=== PATIENT | male | born 1980 | race Caucasian/White ===

== ENCOUNTER 2019-01-09 11:26 | Emergency (ER) | payer OTHER ==
[2019-01-09 11:38] VITALS: BP 142/85
[2019-01-09] MEDS ORDERED: HYDROmorphone 1 MG/ML Syringe IM ONE (11:52)
[2019-01-09] MEDS ORDERED: Ondansetron 4 MG Tab.DIS PO ONE (12:01)
--- NOTE | 2019-01-09 12:09 | EDM.PDOC ---
ED HPI GENERAL MEDICAL PROBLEM - General Chief Complaint: Headache Stated Complaint: BAD HEADACHE Time Seen by Provider: 01/09/19 11:50 Source of Information: Reports: Patient, Old Records History Limitations: Reports: No Limitations - History of Present Illness INITIAL COMMENTS - FREE TEXT/NARRATIVE: 38 yo male had his 3rd every epidural injection last week for back pain. He has had a progressive PHELAN since then. The PHELAN is worse when sitting or standing. Is associated with mild nausea and photophobia. Headache is felt in the forehead region. He had called in with is sx's to the pain clinic here at [facility] and was told to hydrate and use caffiene liberally which he has done without benefit. Sx's seem to be worsening over time. No fever. Onset: Gradual Onset Date: 01/05/19 Duration: Day(s):, Getting Worse Location: Reports: Head Quality: Reports: Ache Severity: Severe Improves with: Reports: Other (lying) Worsens with: Reports: Other (upright posture) Context: Reports: Other (See HPI) Associated Symptoms: Reports: Nausea/Vomiting (no vomiting) Treatments [employer]ATOR: Reports: Other (see below) (oral caffeine/hydration) Headache Pain Score (Numeric/FACES): 6 - Related Data Allergies Allergy/AdvReac Type Severity Reaction Status Date / Time No Known Allergies Allergy Verified 01/09/19 11:35 Home Meds: Home Meds Citalopram Hydrobromide [Celexa] 20 mg PO DAILY 08/20/13 [History] Propranolol [Inderal LA 24 Hr] 60 mg PO DAILY 08/20/13 [History] Pantoprazole [Protonix] 40 mg PO DAILY 06/08/14 [History] Past Medical History HEENT History: Reports: Impaired Vision Musculoskeletal History: Reports: Back Pain, Chronic Psychiatric History: Reports: Anxiety, Panic Attack Endocrine/Metabolic History: Reports: Obesity/BMI 30+ - Infectious Disease History Infectious Disease History: Reports: Chicken Pox - Past Surgical History Head Surgeries/Procedures: Reports: None HEENT Surgical History: Reports: Adenoidectomy, Tonsillectomy Endocrine Surgical History: Reports: None Musculoskeletal Surgical History: Reports: Other (See Below) Social & Family History - Tobacco Use Smoking Status *Q: Former Smoker Used Tobacco, but Quit: Yes Month/Year Tobacco Last Used: 2000 - Caffeine Use Caffeine Use: Reports: Coffee - Recreational Drug Use Recreational Drug Use: No ED ROS GENERAL - Review of Systems Review Of Systems: See Below Constitutional: Reports: No Symptoms HEENT: Reports: No Symptoms Respiratory: Reports: No Symptoms GI/Abdominal: Reports: Nausea. Denies: Vomiting : Reports: No Symptoms Musculoskeletal: Reports: No Symptoms Skin: Reports: No Symptoms Neurological: Reports: Headache Psychiatric: Reports: No Symptoms - Physical Exam Exam: See Below Exam Limited By: No Limitations General Appearance: Alert, WD/WN, No Apparent Distress Eye Exam: Bilateral Eye: Normal Inspection, PERRL, Other (photophobia) Ears: Normal External Exam, Normal Canal, Hearing Grossly Normal, Normal TMs Nose: Normal Inspection, Normal Mucosa, No Blood Throat/Mouth: Normal Inspection, Normal Lips, Normal Oropharynx, Normal Voice, No Airway Compromise Head Exam: Atraumatic, Normocephalic Neck: Normal Inspection Respiratory/Chest: No Respiratory Distress, Lungs Clear, Normal Breath Sounds, No Accessory Muscle Use Cardiovascular: Regular Rate, Rhythm, No Edema GI/Abdominal: Normal Bowel Sounds, Soft, Non-Tender, No Distention Neuro Exam (Abbreviated): Alert, Oriented, CN II-XII Intact, Normal Cognition, No Motor/Sensory Deficits Back Exam: Normal Inspection. No: CVA Tenderness (R), CVA Tenderness (L) Extremities: Normal Inspection, Normal Range of Motion, Non-Tender, No Pedal Edema Psychiatric: Normal Affect, Normal Mood Skin Exam: Warm, Dry, Intact, Normal Color, No Rash Course - Vital Signs Text/Narrative:: Called anesthesia @ 1215, states patient was offered a blood patch on Thursday and declined. Anesthesia will come in now and do the "blood patch" procedure. Last Recorded V/S: Last Vital Signs Temp 35.5 C 01/09/19 11:38 Pulse 58 L 01/09/19 11:38 Resp 16 01/09/19 11:38 BP 142/85 H 01/09/19 11:38 Pulse Ox 97 01/09/19 11:38 - Orders/Labs/Meds Meds: Medications Discontinued Medications Generic Name Dose Route Start Last Admin Trade Name Freq PRN Reason Stop Dose Admin Hydromorphone HCl 1 mg 01/09/19 11:52 01/09/19 11:55 Dilaudid IM 01/09/19 11:53 1 mg ONETIME ONE Administration Lactated Ringer's 1,000 mls @ 1,000 mls/hr 01/09/19 12:14 01/09/19 12:28 Ringers, Lactated IV 01/09/19 13:13 1,000 mls/hr BOLUS ONE Administration Midazolam HCl Confirm 01/09/19 13:27 Versed 1 Mg/Ml Administered 01/09/19 13:28 Dose 2 mg .ROUTE .STK-MED ONE Midazolam HCl 1 mg 01/09/19 13:30 01/09/19 13:32 Versed 1 Mg/Ml IVPUSH 01/09/19 13:31 1 mg ONETIME ONE Administration Ondansetron HCl 4 mg 01/09/19 12:01 01/09/19 12:08 Zofran Odt PO 01/09/19 12:02 4 mg ONETIME ONE Administration Departure - Departure Time of Disposition: 14:54 Disposition: Home, Self-Care 01 Condition: Good Clinical Impression: Spinal puncture headache - Discharge Information *PRESCRIPTION DRUG MONITORING PROGRAM REVIEWED*: No *COPY OF PRESCRIPTION DRUG MONITORING REPORT IN PATIENT NOLVIA: No Referrals: Cruz Mims MD [Primary Care Provider] - Forms: ED Department Discharge Additional Instructions: Rest today. Stay hydrated. Follow through with directions as outlined by anesthesia. Return as needed or see your provider.
[2019-01-09] MEDS ORDERED: Lactated Ringers 1,000 ML IV ONE (12:14)
[2019-01-09] MEDS ORDERED: Midazolam 1 MG/ML 2 ML SDV ONE (13:27)
[2019-01-09] MEDS ORDERED: Midazolam 1 MG/ML 2 ML SDV IVPUSH ONE (13:30)
--- NOTE | 2019-01-10 00:12 | ANES ---
DATE OF SERVICE: 01/09/2019 INDICATION: A 38-year-old gentleman in the emergency room. I was asked by Dr. Bowser to see him. He had a steroid epidural injection last Thursday and developed a spinal headache. He had called in on 01/07/2019, and we had him all set up to do a blood patch epidural, but he apparently is a very anxious gentleman, and he chose to cancel at that time. He then came into the emergency room today. He has been miserable ever since. He has photophobia and headache that does not go away. He has been able to drink fluids and has been drinking a fair amount of caffeinated beverages per our direction. He now would like this taken care of. The procedure was explained to him in detail. His was there. All questions were answered by both of them. He was given a detailed instructions of what Valsalva maneuvers are and how to avoid them. A consent was signed. I am also going to give him a little bit of Versed to help ease his anxieties. When I was called by Dr. Bowser, I asked him to start an IV on him and run in 1 L of fluid and that is basically done at this time. TECHNIQUE: He was placed in a sitting position. His back was examined. Wherever the epidural went in, it is well healed. I believe there is something at L4-5, and this is the level I am planning on going. He was given 1 mg of Versed intravenously by the emergency room nurse, who was in the room with me. After a Betadine solution prep, the epidural was accomplished at, what I believe is, L4-5 x1 with a good feel. No paresthesia. No CSF. No blood. 15 mL of whole blood was then drawn by the emergency room nurse, and the syringe was handed to me. This was injected through the epidural needle, and the needle was removed. He was laid supine. By the time he was down supine, his headache was gone. He will lay supine for 45 minutes. At that point, we will increase him to about 15 degrees and after approximately another 15 minutes, he can go home. He will call us if the headache recurs. He tolerated the procedure well. Torey Mascorro CRNA /[id number]
== END 2019-01-09 15:03 | disposition home or self-care (01) ==
LOC: JP.ED 11:26
DX: G97.1 Other reaction to spinal and lumbar puncture (principal); E66.9 Obesity, unspecified; Z79.899 Other long term (current) drug therapy; Z87.891 Personal history of nicotine dependence
CPT/HCPCS: 62273; 96361; 96372; 96374; 99283; A9270; J1170; J2250; J7120

== ENCOUNTER 2024-02-29 19:44 | Emergency (ER) | payer OTHER ==
[2024-02-29 19:56] VITALS: BP 129/84; PULSE 67
[2024-02-29] MEDS: Bacitracin Oint 1 GM U/D Packet TOP ONE (20:46)
[2024-02-29] MEDS: Diphtheria,Pertussis(Acell),Tetanus Vaccine 0.5 ML Syringe IM ONE (20:46)
[2024-02-29] MEDS: Lidocaine 1% with EPINEPHrine 1:100,000 50 ML MDV SUBCUT STA (20:47)
== END 2024-02-29 20:59 | disposition home or self-care (01) ==
LOC: JP.ED 19:44
DX: S61.412A Laceration without foreign body of left hand, initial encounter (principal); E66.9 Obesity, unspecified; Z79.899 Other long term (current) drug therapy; W26.0XXA Contact with knife, initial encounter
CPT/HCPCS: 12002; 90471; 90715; 99282-25